=== PATIENT | male | born 1995 | race Caucasian/White ===

== ENCOUNTER 2018-01-28 13:12 | Emergency (ER) | payer BC ==
[~2018-01-28] VITALS: Ht 177.8 cm; Wt 114.8 kg
[2018-01-28 13:21] VITALS: Ht 177.8 cm; Wt 114.8 kg
[2018-01-28 14:47] LABS: BASOPHIL % 0.2 % (0-2); PLATELET COUNT 198 x10^3mcL (130-400); RED CELL DISTRIBUTION WIDTH 14.3 % (11.5-14.5)
[2018-01-28 14:58] LABS: CARBON DIOXIDE 27.9 mmol/L (21-32); CHLORIDE SERUM 104 mmol/L (98-107); CREATININE SERUM 1.1 mg/dL (0.7-1.3); GFR1 > 60 mL/min; GLUCOSE SERUM 101 mg/dL (74-106); POTASSIUM SERUM 3.9 mmol/L (3.5-5.1); SODIUM SERUM 139 mmol/L (136-145)
[2018-01-28 15:04] LABS: ALBUMIN 3.9 g/dL (3.4-5.0); ALKALINE PHOSPHATASE 86 U/L (46-116); ALT/SGPT 34 U/L (16-63); AMYLASE 32 U/L (25-115); AST/SGOT 11 U/L (15-37); BILIRUBIN TOTAL 0.46 mg/dL (0.20-1.00); LIPASE 42 IU/L (73-393)
[2018-01-28 15:07] LABS: TOTAL PROTEIN, SERUM 8.5 g/dL (6.4-8.2)
[2018-01-28 15:44] VITALS: BP 144/79
== END 2018-01-28 15:44 | disposition home or self-care (01) ==
LOC: ED 13:12
PROVIDERS: Emergency Medicine
DX: K64.8 Other hemorrhoids (principal); K62.5 Hemorrhage of anus and rectum
CPT/HCPCS: 36415; 83880; Q0092